=== PATIENT | male | born 1955 | race Caucasian/White ===

== ENCOUNTER 2022-11-07 11:48 | Outpatient (CLI) | payer MEDICARE, OTHER | END 2022-11-07 11:49 | disposition home or self-care (01) | LOC: CSHRAD 11:48 | PROVIDERS: ATTEND Nurse Practitioner Family | DX: M89.319 Hypertrophy of bone, unspecified shoulder (principal) ==

== ENCOUNTER 2022-12-11 12:36 | Outpatient (CLI) | payer MEDICARE, OTHER | END 2022-12-11 12:37 | disposition home or self-care (01) | LOC: CSHCT 12:36 | PROVIDERS: ATTEND Orthopaedic Surgery | DX: M19.09 Primary osteoarthritis, other specified site (principal); M19.012 Primary osteoarthritis, left shoulder ==

== ENCOUNTER 2024-07-10 13:34 | Outpatient (CLI) | payer MEDICARE, OTHER | END 2024-07-10 13:35 | disposition home or self-care (01) | LOC: CSHRAD 13:34 | PROVIDERS: ATTEND Internal Medicine | DX: R13.10 Dysphagia, unspecified (principal); K44.9 Diaphragmatic hernia without obstruction or gangrene | CPT/HCPCS: 74220 ==